=== PATIENT | female | born 1960 | race Caucasian/White ===

== ENCOUNTER 2018-01-03 11:46 | Emergency (ER) | payer OTHER ==
[~2018-01-03] VITALS: Ht 157.5 cm; Wt 87.5 kg
[2018-01-03 12:05] VITALS: Ht 157.5 cm; Wt 87.5 kg
[2018-01-03 14:59] VITALS: BP 130/85
== END 2018-01-03 14:59 | disposition home or self-care (01) ==
LOC: ED 11:46
DX: M79.662 Pain in left lower leg (principal); M79.89 Other specified soft tissue disorders; J45.909 Unspecified asthma, uncomplicated; K21.9 Gastro-esophageal reflux disease without esophagitis; Z88.6 Allergy status to analgesic agent; Z88.8 Allergy status to other drugs, medicaments and biological substances; Z88.5 Allergy status to narcotic agent; Z88.1 Allergy status to other antibiotic agents
CPT/HCPCS: Q0092

== ENCOUNTER 2018-04-05 14:26 | Emergency (ER) | payer OTHER ==
[~2018-04-05] VITALS: Ht 157.5 cm; Wt 87.1 kg
[2018-04-05 14:32] VITALS: BP 146/100; Ht 157.5 cm; Wt 87.1 kg
== END 2018-04-05 15:18 | disposition home or self-care (01) ==
LOC: ED 14:26
DX: S61.206A Unspecified open wound of right little finger without damage to nail, initial encounter (principal); K21.9 Gastro-esophageal reflux disease without esophagitis; Z88.5 Allergy status to narcotic agent; Z88.6 Allergy status to analgesic agent; Z88.1 Allergy status to other antibiotic agents; W26.8XXA Contact with other sharp object(s), not elsewhere classified, initial encounter; Y93.89 Activity, other specified; Y92.89 Other specified places as the place of occurrence of the external cause; Y99.8 Other external cause status
CPT/HCPCS: 90715

== ENCOUNTER 2018-06-29 23:16 | Inpatient (IN) | payer OTHER ==
[~2018-06-29] VITALS: Ht 157.5 cm; Wt 82.8 kg
[2018-06-29 23:20] VITALS: Ht 157.5 cm; Wt 82.8 kg
[2018-06-30] VITALS (7 sets, daily range): BP systolic 110–178; BP diastolic 71–101
[2018-06-30 00:01] LABS: PLATELET COUNT 288 x10^3mcL (130-400)
[2018-06-30 00:09] LABS: CALCIUM 9.7 mg/dL (8.5-10.1); CARBON DIOXIDE 23.8 mmol/L (21-32); CREATININE SERUM 1.2 mg/dL (0.6-1.0); POTASSIUM SERUM 3.7 mmol/L (3.5-5.1)
[2018-06-30 00:12] LABS: RED CELL DISTRIBUTION WIDTH 17.1 % (11.5-14.5)
[2018-06-30 00:14] LABS: ALBUMIN 3.9 g/dL (3.4-5.0); BILIRUBIN TOTAL 0.4 mg/dL (0.20-1.00); TOTAL PROTEIN, SERUM 8.1 g/dL (6.4-8.2)
[2018-06-30] MEDS ORDERED: GABAPENTIN800 M1 PO (02:24)
[2018-06-30] MEDS ORDERED: CYMBALTA60 M1 PO (02:24)
[2018-06-30] MEDS ORDERED: ZANAFLEX CAPSULE4 MG PO (02:25)
[2018-06-30] MEDS ORDERED: SINGULAIR10 MG (02:25)
[2018-06-30] MEDS ORDERED: GLYCOTROL CAPS1 EACH PO (02:26)
[2018-06-30] MEDS ORDERED: DUREZOL5 ML OP (02:27)
[2018-06-30] MEDS ORDERED: ALDACTONE25 MG PO (02:28)
[2018-06-30] MEDS ORDERED: PROTONIX40 MG PO (02:29)
[2018-06-30] MEDS ORDERED: VERAPAMIL HCL120 M2 PO (02:29)
[2018-06-30] MEDS ORDERED: OSTERA TABLET1 EACH (02:30)
[2018-06-30 02:43] LABS: UA SPECIFIC GRAVITY <=1.005 (1.005-1.035); microscopic required? YES; urine erythrocyte NEGATIVE (NEGATIVE)
[2018-06-30 02:55] LABS: AMPHETAMINE QUAL UR NONE DETECTED (See below)
[2018-06-30 04:04] LABS: MAGNESIUM 1.8 mg/dL (1.8-2.4); PHOSPHOROUS 3.7 mg/dL (2.5-4.9)
[2018-06-30 04:06] LABS: CHOLESTEROL/HDL RATIO 3.8
[2018-06-30 06:51] LABS: CALCIUM 9.5 mg/dL (8.5-10.1); CARBON DIOXIDE 27.6 mmol/L (21-32); CREATININE SERUM 1.2 mg/dL (0.6-1.0); MAGNESIUM 1.8 mg/dL (1.8-2.4); POTASSIUM SERUM 3.5 mmol/L (3.5-5.1)
[2018-06-30 09:10] LABS: BASOPHIL % 0.2 % (0-2); PLATELET COUNT 284 x10^3mcL (130-400); RED CELL DISTRIBUTION WIDTH 17.9 % (11.5-14.5)
[2018-07-01] VITALS (7 sets, daily range): BP systolic 117–166; BP diastolic 72–99
[2018-07-02 05:20] VITALS: BP 144/94
[2018-07-02 05:32] LABS: BASOPHIL % 0.8 % (0-2); PLATELET COUNT 239 x10^3mcL (130-400)
[2018-07-02 06:02] LABS: RED CELL DISTRIBUTION WIDTH 17.4 % (11.5-14.5)
[2018-07-02 06:05] LABS: CALCIUM 8.9 mg/dL (8.5-10.1); CARBON DIOXIDE 27.8 mmol/L (21-32); CREATININE SERUM 1.2 mg/dL (0.6-1.0); MAGNESIUM 2.1 mg/dL (1.8-2.4); PHOSPHOROUS 4.5 mg/dL (2.5-4.9); POTASSIUM SERUM 4.9 mmol/L (3.5-5.1)
[2018-07-02 10:33] VITALS: BP 152/85
[2018-07-02] MEDS ORDERED: CAL240 PO (11:23)
[2018-07-02] MEDS ORDERED: LIPI10 PO (11:24)
[2018-07-02] MEDS ORDERED: AMBIEN5 MG PO (11:27)
[2018-07-02] MEDS ORDERED: CAT0.1 PO (11:27)
[2018-07-02 11:50] VITALS: BP 114/72
[2018-07-02 14:37] VITALS: BP 103/64
== END 2018-07-02 15:57 | disposition home or self-care (01) | DRG 199 ==
LOC: ED 23:16 → DU 06-30 02:06
PROVIDERS: Emergency Medicine; Internal Medicine
DX: I16.0 Hypertensive urgency (principal); N18.3 Chronic kidney disease, stage 3 (moderate); Q61.2 Polycystic kidney, adult type; I20.9 Angina pectoris, unspecified; M94.0 Chondrocostal junction syndrome [Tietze]; M79.7 Fibromyalgia; E78.5 Hyperlipidemia, unspecified; I12.9 Hypertensive chronic kidney disease with stage 1 through stage 4 chronic kidney disease, or unspecified chronic kidney disease; Z98.1 Arthrodesis status; Z68.34 Body mass index [BMI] 34.0-34.9, adult; Z82.41 Family history of sudden cardiac death; Z88.8 Allergy status to other drugs, medicaments and biological substances; Z88.6 Allergy status to analgesic agent; Z91.041 Radiographic dye allergy status; I25.2 Old myocardial infarction; J45.909 Unspecified asthma, uncomplicated; K21.9 Gastro-esophageal reflux disease without esophagitis; M19.90 Unspecified osteoarthritis, unspecified site; Z82.49 Family history of ischemic heart disease and other diseases of the circulatory system; F41.9 Anxiety disorder, unspecified
CPT/HCPCS: 83880; 85378; 94150; J1885; J2270; J3490; J7030; J7620; Q0092

== ENCOUNTER 2020-06-13 01:33 | Emergency (ER) | payer OTHER ==
[~2020-06-13] VITALS: Ht 154.9 cm; Wt 83.9 kg
[~2020-06-13 01:33] MED LIST: ALDACTONE25 MG PO; AMBIEN5 MG PO; CAL240 PO; CAT0.1 PO; CYMBALTA60 M1 PO; DUREZOL5 ML OP; GABAPENTIN800 M1 PO; GLYCOTROL CAPS1 EACH PO; LIPI10 PO; OSTERA TABLET1 EACH; PROTONIX40 MG PO; SINGULAIR10 MG; VERAPAMIL HCL120 M2 PO; ZANAFLEX CAPSULE4 MG PO
[2020-06-13 01:47] VITALS: Ht 154.9 cm; Wt 83.9 kg
[2020-06-13 05:38] VITALS: BP 164/101
== END 2020-06-13 05:38 | disposition home or self-care (01) ==
LOC: ED 01:33
DX: S43.004A Unspecified dislocation of right shoulder joint, initial encounter (principal); S16.1XXA Strain of muscle, fascia and tendon at neck level, initial encounter; I10 Essential (primary) hypertension; Z88.6 Allergy status to analgesic agent; Z88.8 Allergy status to other drugs, medicaments and biological substances; Z88.1 Allergy status to other antibiotic agents; W20.8XXA Other cause of strike by thrown, projected or falling object, initial encounter; Y93.89 Activity, other specified; Y92.89 Other specified places as the place of occurrence of the external cause; Y99.8 Other external cause status
CPT/HCPCS: J2270; J2704; J3490; J7040; Q0092

== ENCOUNTER 2020-06-19 15:14 | Inpatient (IN) | payer OTHER ==
[~2020-06-19] VITALS: Ht 154.9 cm; Wt 88.9 kg
[2020-06-19 16:33] LABS: BASOPHIL % 0.2 % (0-2); PLATELET COUNT 257 x10^3mcL (130-400)
[2020-06-19 16:35] LABS: RED CELL DISTRIBUTION WIDTH 14.7 % (11.5-14.5)
[2020-06-19 16:41] LABS: CALCIUM 8.8 mg/dL (8.5-10.1); CARBON DIOXIDE 24.7 mmol/L (21-32); CREATININE SERUM 1.1 mg/dL (0.6-1.0); POTASSIUM SERUM 3.9 mmol/L (3.5-5.1)
[2020-06-19 16:46] LABS: BILIRUBIN TOTAL 1.15 mg/dL (0.20-1.00); C REACTIVE PROTEIN 2.6 mg/dL (<=0.9); TOTAL PROTEIN, SERUM 7.6 g/dL (6.4-8.2)
[2020-06-19 17:41] LABS: UA SPECIFIC GRAVITY <=1.005 (1.005-1.035); microscopic required? YES; urine erythrocyte NEGATIVE (NEGATIVE)
[2020-06-19] MEDS ORDERED: ADULT ASPIRIN R81 MG PO (18:18)
[2020-06-19] MEDS ORDERED: PLAVIX75 M1 (18:18)
[2020-06-19] MEDS ORDERED: IRON325 M3 (18:19)
[2020-06-19] MEDS ORDERED: CALCIUM500 M1 (18:19)
[2020-06-19] MEDS ORDERED: RANEXA500 M2 (18:19)
[2020-06-19] MEDS ORDERED: MAGNESIUM200 M1 (18:20)
[2020-06-19] MEDS ORDERED: SENNA8.6 M2 (18:20)
[2020-06-19 18:51] LABS: MAGNESIUM 1.9 mg/dL (1.8-2.4)
[2020-06-19 21:13] VITALS: BP 155/101
[2020-06-19 21:19] VITALS: Ht 154.9 cm; Wt 88.9 kg
[2020-06-19 22:30] VITALS: BP 132/75
[2020-06-20 05:55] VITALS: BP 112/77
[2020-06-20 07:10] LABS: CARBON DIOXIDE 25.3 mmol/L (21-32); CREATININE SERUM 1.1 mg/dL (0.6-1.0); POTASSIUM SERUM 3.5 mmol/L (3.5-5.1)
[2020-06-20 07:27] LABS: BASOPHIL % 0.1 % (0-2); PLATELET COUNT 268 x10^3mcL (130-400)
[2020-06-20 08:26] VITALS: BP 142/92
[2020-06-20 11:58] VITALS: BP 126/81
[2020-06-20 16:42] VITALS: BP 163/84
[2020-06-20 21:25] VITALS: BP 153/108
[2020-06-20 22:40] VITALS: BP 142/84
[2020-06-21 05:15] VITALS: BP 143/86
[2020-06-21 08:41] VITALS: BP 128/87
[2020-06-21 12:55] VITALS: BP 133/89
[2020-06-21 13:14] VITALS: BP 133/89
== END 2020-06-21 15:46 | disposition home health service (06) | DRG 198 ==
LOC: ED 15:14 → DU 18:10
PROVIDERS: Emergency Medicine; Hospitalist; ADMIT Hospitalist; ATTEND Hospitalist
DX: R07.9 Chest pain, unspecified (principal); I20.9 Angina pectoris, unspecified; D68.59 Other primary thrombophilia; Q61.3 Polycystic kidney, unspecified; E87.1 Hypo-osmolality and hyponatremia; D64.9 Anemia, unspecified; S43.006A Unspecified dislocation of unspecified shoulder joint, initial encounter; J40 Bronchitis, not specified as acute or chronic; D72.829 Elevated white blood cell count, unspecified; K21.9 Gastro-esophageal reflux disease without esophagitis; I10 Essential (primary) hypertension; Z20.828 Contact with and (suspected) exposure to other viral communicable diseases; E80.6 Other disorders of bilirubin metabolism; E78.5 Hyperlipidemia, unspecified; R58 Hemorrhage, not elsewhere classified; Z88.1 Allergy status to other antibiotic agents; I25.2 Old myocardial infarction; Z88.5 Allergy status to narcotic agent; Z88.8 Allergy status to other drugs, medicaments and biological substances; Z88.9 Allergy status to unspecified drugs, medicaments and biological substances; Z91.09 Other allergy status, other than to drugs and biological substances; Z86.73 Personal history of transient ischemic attack (TIA), and cerebral infarction without residual deficits; Z82.49 Family history of ischemic heart disease and other diseases of the circulatory system; Z79.899 Other long term (current) drug therapy; Z79.82 Long term (current) use of aspirin
CPT/HCPCS: 83880; 85378; 90658; G0378; J1200; J2270; Q0092; U0003

== ENCOUNTER 2020-07-25 21:37 | Inpatient (IN) | payer OTHER ==
[~2020-07-25] VITALS: Ht 156.2 cm; Wt 89.5 kg
[~2020-07-25 21:37] MED LIST changes: +ADULT ASPIRIN R81 MG PO; +CALCIUM500 M1; +IRON325 M3; +MAGNESIUM200 M1; +PLAVIX75 M1; +RANEXA500 M2; +SENNA8.6 M2
[2020-07-25 23:11] VITALS: Ht 156.2 cm; Wt 89.5 kg
[2020-07-25 23:24] LABS: BASOPHIL % 1.2 % (0-2); PLATELET COUNT 357 x10^3mcL (130-400)
[2020-07-26 00:06] LABS: CALCIUM 8.9 mg/dL (8.5-10.1); CARBON DIOXIDE 21.4 mmol/L (21-32); CREATININE SERUM 1.6 mg/dL (0.6-1.0); POTASSIUM SERUM 3.8 mmol/L (3.5-5.1)
[2020-07-26 00:19] LABS: ALBUMIN 3.4 g/dL (3.4-5.0); BILIRUBIN TOTAL 1.12 mg/dL (0.20-1.00); TOTAL PROTEIN, SERUM 6.3 g/dL (6.4-8.2)
[2020-07-26 05:51] LABS: UA SPECIFIC GRAVITY 1.025 (1.005-1.035); microscopic required? YES; urine erythrocyte 2+ (NEGATIVE)
[2020-07-26] MEDS ORDERED: SULFASALAZINE500 MG PO (06:32)
[2020-07-26] MEDS ORDERED: ONDANSETRON4 M3 PO (06:33)
[2020-07-26] MEDS ORDERED: PROAIR HFA8.5 GM INH (06:35)
[2020-07-26] MEDS ORDERED: PROINH INH (06:35)
[2020-07-26 16:18] VITALS: BP 133/64
[2020-07-26 17:25] LABS: BASOPHIL % 0.3 % (0.2-1.3)
[2020-07-26 17:28] LABS: PLATELET COUNT 171 x10^3mcL (179-408)
[2020-07-26 17:36] LABS: RED CELL DISTRIBUTION WIDTH 15.2 % (12.3-17.7)
[2020-07-26 17:39] LABS: rbc morphology (normal/abnorm) NORMAL (NORMAL)
[2020-07-26 17:44] LABS: CALCIUM 8.4 mg/dL (8.5-10.1); CARBON DIOXIDE 22.7 mmol/L (21-32); CREATININE SERUM 1.4 mg/dL (0.6-1.0); POTASSIUM SERUM 3.3 mmol/L (3.5-5.1)
[2020-07-26 18:22] LABS: BILIRUBIN TOTAL 0.4 mg/dL (0.20-1.00)
[2020-07-26 18:31] LABS: ALBUMIN 3.2 g/dL (3.4-5.0); TOTAL PROTEIN, SERUM 5.3 g/dL (6.4-8.2)
[2020-07-26 19:32] VITALS: BP 103/65
[2020-07-26 20:24] LABS: BASOPHIL % 0.4 % (0.2-1.3)
[2020-07-26 20:25] LABS: PLATELET COUNT 186 x10^3mcL (179-408)
[2020-07-26 20:32] LABS: RED CELL DISTRIBUTION WIDTH 14.8 % (12.3-17.7)
[2020-07-26 20:52] LABS: rbc morphology (normal/abnorm) ABNORMAL (NORMAL)
[2020-07-26 23:40] VITALS: BP 107/59
[2020-07-27 05:17] VITALS: BP 97/56
[2020-07-27 07:32] LABS: BASOPHIL % 0.4 % (0.2-1.3); PLATELET COUNT 160 x10^3mcL (179-408)
[2020-07-27 08:02] LABS: BILIRUBIN TOTAL 0.68 mg/dL (0.20-1.00); CARBON DIOXIDE 22.6 mmol/L (21-32); CREATININE SERUM 1.3 mg/dL (0.6-1.0); POTASSIUM SERUM 3.6 mmol/L (3.5-5.1)
[2020-07-27 08:05] LABS: ALBUMIN 3.1 g/dL (3.4-5.0)
[2020-07-27 08:27] LABS: CALCIUM 8.6 mg/dL (8.5-10.1)
[2020-07-27 09:29] VITALS: BP 93/63
[2020-07-27 10:26] LABS: RED CELL DISTRIBUTION WIDTH 15.3 % (12.3-17.7)
[2020-07-27 13:43] LABS: rbc morphology (normal/abnorm) ABNORMAL (NORMAL)
[2020-07-27 17:19] VITALS: BP 108/61
[2020-07-27 19:29] VITALS: BP 108/51
[2020-07-27 23:49] VITALS: BP 101/59
[2020-07-28 05:53] VITALS: BP 106/67
[2020-07-28 08:13] LABS: BASOPHIL % 0.7 % (0.2-1.3); PLATELET COUNT 149 x10^3mcL (179-408)
[2020-07-28 08:50] VITALS: BP 96/46
[2020-07-28 09:27] LABS: RED CELL DISTRIBUTION WIDTH 17.8 % (12.3-17.7)
[2020-07-28 09:50] LABS: ALBUMIN 3.2 g/dL (3.4-5.0); ALKALINE PHOSPHATASE 74 U/L (46-116); ALT/SGPT 34 U/L (14-59); AST/SGOT 28 U/L (15-37); BILIRUBIN TOTAL 0.9 mg/dL (0.20-1.00); CALCIUM 8.5 mg/dL (8.5-10.1); CARBON DIOXIDE 20.8 mmol/L (21-32); CHLORIDE SERUM 107 mmol/L (98-107); GFR1 > 60 mL/min; GLUCOSE SERUM 82 mg/dL (74-106); SODIUM SERUM 142 mmol/L (136-145); TOTAL PROTEIN, SERUM 6.2 g/dL (6.4-8.2)
[2020-07-28 12:23] VITALS: BP 104/62
[2020-07-28 15:13] LABS: rbc morphology (normal/abnorm) NORMAL (NORMAL)
[2020-07-28 17:37] VITALS: BP 97/57
[2020-07-28 21:58] VITALS: BP 105/62
[2020-07-29 06:30] VITALS: BP 105/62
[2020-07-29 08:00] VITALS: BP 102/63
[2020-07-29 08:20] LABS: BASOPHIL % 0.4 % (0.2-1.3); PLATELET COUNT 162 x10^3mcL (179-408)
[2020-07-29 08:51] LABS: RED CELL DISTRIBUTION WIDTH 18.2 % (12.3-17.7)
[2020-07-29 09:12] LABS: ALKALINE PHOSPHATASE 86 U/L (46-116); ALT/SGPT 33 U/L (14-59); AST/SGOT 48 U/L (15-37); BILIRUBIN TOTAL 0.8 mg/dL (0.20-1.00); CALCIUM 8.3 mg/dL (8.5-10.1); CARBON DIOXIDE 25.2 mmol/L (21-32); CHLORIDE SERUM 104 mmol/L (98-107); CREATININE SERUM 0.9 mg/dL (0.6-1.0); GFR1 > 60 mL/min; GLUCOSE SERUM 74 mg/dL (74-106); POTASSIUM SERUM 4.1 mmol/L (3.5-5.1); SODIUM SERUM 140 mmol/L (136-145); TOTAL PROTEIN, SERUM 6.2 g/dL (6.4-8.2)
[2020-07-29 09:20] LABS: ALBUMIN 3.1 g/dL (3.4-5.0)
[2020-07-29 10:18] LABS: rbc morphology (normal/abnorm) NORMAL (NORMAL)
[2020-07-29 12:15] VITALS: BP 114/50
[2020-07-29 20:32] VITALS: BP 114/70
[2020-07-30 05:25] VITALS: BP 106/62
[2020-07-30 07:23] LABS: BASOPHIL % 0.4 % (0.2-1.3); PLATELET COUNT 190 x10^3mcL (179-408)
[2020-07-30 08:01] LABS: RED CELL DISTRIBUTION WIDTH 16.9 % (12.3-17.7)
[2020-07-30 08:02] LABS: rbc morphology (normal/abnorm) NORMAL (NORMAL)
[2020-07-30 08:07] VITALS: BP 118/65
[2020-07-30 08:14] LABS: ALKALINE PHOSPHATASE 92 U/L (46-116); ALT/SGPT 32 U/L (14-59); AST/SGOT 37 U/L (15-37); BILIRUBIN TOTAL 0.89 mg/dL (0.20-1.00); CALCIUM 8.3 mg/dL (8.5-10.1); CARBON DIOXIDE 27.6 mmol/L (21-32); CHLORIDE SERUM 106 mmol/L (98-107); CREATININE SERUM 0.9 mg/dL (0.6-1.0); GFR1 > 60 mL/min; GLUCOSE SERUM 76 mg/dL (74-106); POTASSIUM SERUM 4.2 mmol/L (3.5-5.1); SODIUM SERUM 139 mmol/L (136-145)
[2020-07-30 08:15] LABS: ALBUMIN 2.8 g/dL (3.4-5.0)
[2020-07-30 11:17] VITALS: BP 128/56
[2020-07-30 15:20] VITALS: BP 98/66
[2020-07-30 16:35] VITALS: BP 100/53
[2020-07-30 20:40] VITALS: BP 113/46
[2020-07-31 05:07] VITALS: BP 114/68
[2020-07-31 08:12] VITALS: BP 126/80
[2020-07-31 09:13] LABS: PLATELET COUNT 263 x10^3mcL (179-408)
[2020-07-31 09:21] LABS: RED CELL DISTRIBUTION WIDTH 16.8 % (12.3-17.7)
[2020-07-31 10:02] LABS: ALKALINE PHOSPHATASE 106 U/L (46-116); ALT/SGPT 28 U/L (14-59); AST/SGOT 36 U/L (15-37); BILIRUBIN TOTAL 1.15 mg/dL (0.20-1.00); CALCIUM 8.7 mg/dL (8.5-10.1); CARBON DIOXIDE 27.5 mmol/L (21-32); CHLORIDE SERUM 103 mmol/L (98-107); CREATININE SERUM 0.9 mg/dL (0.6-1.0); GFR1 > 60 mL/min; GLUCOSE SERUM 70 mg/dL (74-106); POTASSIUM SERUM 3.7 mmol/L (3.5-5.1); SODIUM SERUM 142 mmol/L (136-145); TOTAL PROTEIN, SERUM 6.5 g/dL (6.4-8.2)
[2020-07-31 10:03] LABS: ALBUMIN 3.2 g/dL (3.4-5.0)
[2020-07-31 11:37] VITALS: BP 126/80
[2020-07-31 12:16] LABS: ATYPICAL LYMPH 11 %; SEGMENTED NEUTROPHILS 81 % (37-75); rbc morphology (normal/abnorm) NORMAL (NORMAL)
== END 2020-07-31 12:33 | disposition home or self-care (01) | DRG 720 ==
LOC: ED 21:37 → MU 07-26 06:00
PROVIDERS: Emergency Medicine; Internal Medicine; ADMIT Hospitalist; ATTEND Hospitalist
PROC: 30233N1 Transfusion of Nonautologous Red Blood Cells into Peripheral Vein, Percutaneous Approach (ICD-10-PCS; principal; 2020-07-27)
DX: A41.9 Sepsis, unspecified organism (principal); I13.0 Hypertensive heart and chronic kidney disease with heart failure and stage 1 through stage 4 chronic kidney disease, or unspecified chronic kidney disease; N18.30 Chronic kidney disease, stage 3 unspecified; I50.32 Chronic diastolic (congestive) heart failure; N12 Tubulo-interstitial nephritis, not specified as acute or chronic; Z88.5 Allergy status to narcotic agent; Z88.1 Allergy status to other antibiotic agents; Z88.8 Allergy status to other drugs, medicaments and biological substances; Z88.6 Allergy status to analgesic agent; Z91.041 Radiographic dye allergy status; J45.909 Unspecified asthma, uncomplicated; K21.9 Gastro-esophageal reflux disease without esophagitis; I25.2 Old myocardial infarction; R65.20 Severe sepsis without septic shock; I25.10 Atherosclerotic heart disease of native coronary artery without angina pectoris; Z95.5 Presence of coronary angioplasty implant and graft; M19.90 Unspecified osteoarthritis, unspecified site; E78.5 Hyperlipidemia, unspecified; Z82.49 Family history of ischemic heart disease and other diseases of the circulatory system; N28.1 Cyst of kidney, acquired; Q44.6 Cystic disease of liver; G89.4 Chronic pain syndrome; M79.7 Fibromyalgia; D64.9 Anemia, unspecified; Z20.828 Contact with and (suspected) exposure to other viral communicable diseases
CPT/HCPCS: G0378; J1644; J1956; J2270; J2405; J3010; J7030; J7050; P9016